=== PATIENT | female | born 1930 | race Caucasian/White ===

== ENCOUNTER 2016-08-23 21:09 | Emergency (ER) | payer MEDICARE, OTHER ==
[2016-08-23 21:40] LABS: BASO % 0.1 % (0.1-1.2); HEMATOCRIT 28.2 % (34-45); HEMOGLOBIN 9.2 g/dL (11.2-15.7); MEAN CORPUSCULAR HEMOGLOBIN 31.5 pg (27.0-33.0); MEAN CORPUSCULAR HGB CONC 32.6 g/dL (32.0-36.0); MEAN CORPUSCULAR VOLUME 96.6 fL (79-95); PLATELET COUNT 91 x10_3/uL (182-369); RED BLOOD COUNT 2.92 x10_6/uL (3.9-5.2); RED CELL DISTRIBUTION WIDTH 16.9 % (11.7-14.4)
[2016-08-23 21:44] LABS: WHITE BLOOD COUNT 28.9 x10_3/uL (4.0-10.0)
[2016-08-23 21:56] LABS: ALBUMIN 3.9 gm/dL (3.4-5.0); BILIRUBIN,TOTAL 0.51 mg/dL (0.0-1.0); CALCIUM 8.9 mg/dL (8.7-10.7); CREATININE 1.1 mg/dL (0.6-1.3); POTASSIUM 3.9 mmol/L (3.5-5.1); TOTAL PROTEIN 7.6 gm/dL (6.4-8.2)
[2016-08-23 23:04] LABS: URINE BILIRUBIN NEGATIVE (NEGATIVE); URINE BLOOD 1+ (NEGATIVE); URINE GLUCOSE (UA) NORMAL (NORMAL); URINE KETONE TRACE (NEGATIVE); URINE LEUKOCYTE ESTERASE 2+ (NEGATIVE); URINE NITRATE NEGATIVE (NEGATIVE); URINE PROTEIN 2+ (NEGATIVE)
[2016-08-23 23:16] LABS: URINE BACTERIA 1+ (NONE SEEN); URINE SQUAMOUS EPITHELIAL CELL 0-10 /[HPF] (NONE SEEN); URINE WBC >15 /[HPF] (0-5)
== END 2016-08-24 02:50 | disposition short-term general hospital (02) ==
LOC: ER 21:09
PROVIDERS: Internal Medicine
DX: N39.0 Urinary tract infection, site not specified (principal); R53.1 Weakness; D72.829 Elevated white blood cell count, unspecified; R19.7 Diarrhea, unspecified; R11.0 Nausea; Z95.0 Presence of cardiac pacemaker; Z95.5 Presence of coronary angioplasty implant and graft; I10 Essential (primary) hypertension; E11.9 Type 2 diabetes mellitus without complications; E78.00 Pure hypercholesterolemia, unspecified; Z79.899 Other long term (current) drug therapy; Z79.82 Long term (current) use of aspirin
CPT/HCPCS: 36415; 71010; 80053; 81001; 82550; 82553; 83605; 85025; 87040; 87070; 87086; 87400; 87880; 93005; 96365; 96366; 99284; 99285-25; J7050